=== PATIENT | female | born 1985 | race Caucasian/White ===

== ENCOUNTER → 2018-07-25 07:01 | Outpatient (CLI) | payer BC, SELFPAY | PROVIDERS: PCP Family Medicine; Visit Provider Obstetrics & Gynecology Reproductive Endocrinology | DX: Z32.00 Encounter for pregnancy test, result unknown (principal) | CPT/HCPCS: 36415; 84702 ==

== ENCOUNTER → 2018-07-27 07:05 | Outpatient (CLI) | payer BC, SELFPAY ==
[2018-07-27 07:49] LABS: HCG Quantitative /Beta subunit 581.55 mIU/mL
== END ==
PROVIDERS: PCP Family Medicine; Visit Provider Obstetrics & Gynecology Reproductive Endocrinology
DX: Z32.01 Encounter for pregnancy test, result positive (principal)
CPT/HCPCS: 36415; 84702

== ENCOUNTER → 2018-08-09 09:52 | Outpatient (CLI) | payer BC, SELFPAY ==
[2018-08-09 12:29] LABS: Appearance Urine UA CLEAR; Bilirubin Urine UA NEGATIVE (NEGATIVE); Color Urine UA YELLOW; Glucose Urine UA NEGATIVE (Negative); Ketones Urine UA NEGATIVE (NEGATIVE); Leukocyte Esterase Urine UA NEGATIVE (NEGATIVE); Nitrite Urine UA NEGATIVE (Negative); Occult Blood Urine UA NEGATIVE (Negative); Protein Urine UA NEGATIVE (Negative); Urobilinogen Urine UA 0.2 E.U./dL (0.2); pH Urine UA 6.5 (4.5-8.0)
[2018-08-09 12:37] LABS: Add Manual Diff / Slide Review NO; Basophils Absolute Auto 0 /uL (0-100); Basophils Percent Auto 0.4 % (0-2); Eosinophils Absolute Auto 100 /uL (0-450); Eosinophils Percent Auto 1.4 % (2-4); Hematocrit 45.2 % (36-46); Hemoglobin 15.2 g/dL (12.0-16.0); Lymphocytes Absolute Auto 1000 /uL (1100-4500); Lymphocytes Percent Auto 12.8 % (25-40); Mean Corpuscular HGB Conc 33.5 % (30-36); Mean Corpuscular Volume 95.5 fL (80-100); Monocytes Absolute Auto 800 /uL (0-900); Monocytes Percent Auto 10.3 % (3-14); Neutrophils Absolute Auto 5800 /uL (1500-7000); Neutrophils Percent Auto 75.1 % (50-75); Platelet Count 295 X10^3/uL (150-400); Red Blood Cell Count 4.74 X10^6/uL (4.0-5.2); Red Cell Distribution Width 12.4 % (11.6-14.8); White Blood Cell Count 7.7 X10^3/uL (4.5-11.0)
[2018-08-09 13:43] LABS: Thyroid Stimulating Hormone 1.06 uIU/mL (0.47-4.68)
[2018-08-09 13:45] LABS: Hepatitis B Surface Antigen NEGATIVE s/c (NEGATIVE); Rubella Antibody IgG 34.2 IU/mL (>15)
[2018-08-09 14:02] LABS: HIV 1 and 2 Antibody NEGATIVE (NEGATIVE); Hep C Virus Ab w/Reflex Quant NEGATIVE s/c (NEGATIVE)
[2018-08-10 19:14] LABS: RPR Screen Nonreactive (Nonreactive)
== END ==
PROVIDERS: Specialist; PCP Family Medicine; Visit Provider Family Medicine
DX: Z34.91 Encounter for supervision of normal pregnancy, unspecified, first trimester (principal)
CPT/HCPCS: 36415; 80055; 81003; 84443; 86631; 86632; 86695; 86696; 86703; 86787; 86803; 86850; 86900; 86901; 87077; 87086

== ENCOUNTER → 2018-08-24 16:46 | Outpatient (CLI) | payer BC, SELFPAY ==
[2018-08-24 21:06] LABS: Urine N gonorrhoeae NOT DETECTED
[2018-08-24 21:22] LABS: Urine Chlamydia NOT DETECTED
== END ==
PROVIDERS: PCP Family Medicine; Visit Provider Specialist
DX: Z11.3 Encounter for screening for infections with a predominantly sexual mode of transmission (principal); Z11.8 Encounter for screening for other infectious and parasitic diseases; Z34.81 Encounter for supervision of other normal pregnancy, first trimester; Z3A.08 8 weeks gestation of pregnancy
CPT/HCPCS: 87491; 87591

== ENCOUNTER → 2018-12-21 09:39 | Outpatient (CLI) | payer BC, SELFPAY ==
[2018-12-21 12:12] LABS: Hematocrit 37.8 % (36-46)
[2018-12-21 12:18] LABS: GTT (PREG) 1 Hour PP 50gm Dose 111 mg/dL (76-139)
== END ==
PROVIDERS: PCP Family Medicine; Visit Provider Specialist
DX: Z34.82 Encounter for supervision of other normal pregnancy, second trimester (principal); Z3A.26 26 weeks gestation of pregnancy
CPT/HCPCS: 36415; 82950; 85014; 85018

== ENCOUNTER 2019-02-20 07:30 | Outpatient (RCR) | payer BC, SELFPAY ==
--- NOTE | 2019-01-02 16:46 | PT.OIE ---
Current Diagnoses Sciatica, left side (01/02/19) Dorsalgia, unspecified (01/02/19) Other specified diseases and conditions complicating , childbirth and the puerperium (01/02/19) 24 weeks gestation of (01/02/19) Past Medical History (Last Reviewed 08/09/18 @ 13:16 by Catalina Toscano DO) Abnormal Pap smear of cervix (Chronic ~2003) Acne (Chronic ~1999) Plantar warts (Chronic ~1999) Seasonal allergies (Chronic ~1994) Chicken pox (Resolved ~1986) Fractures (Resolved ~2002) Past Surgical History (Last Reviewed 08/09/18 @ 13:16 by Catalina Toscano DO) Anesthesia (Resolved) H/O LEEP (Resolved) History of photorefractive keratectomy (PRK) (Resolved ~2014) History of tonsillectomy (~2008) Status post delivery (04/30/17) Status post dilation and curettage (05/05/17) Provider Visit Care Team Role Provider Type Catalina Toscano DO Primary Care Provider Physician Specialty: Family Practice Address: [address] [place] [address] Email: [email or web address] Lynne Chacon MD Attending Provider Physician Specialty: MEDICAL LAB DIRECTOR Address: [address] [place] [address] Email: [email or web address] Physical Therapy Initial Evaluation PT-OP-A Visit Information Start: 01/02/19 15:05 Freq: Status: Active Protocol: Document 01/02/19 15:07 AW (Rec: 01/02/19 16:46 AW [email or web address]) Out-Patient Physical Therapy Visit Information Visit Information Visit Type Initial Evaluation Visit Start Time 13:45 Visit Stop Time 14:29 Total Visit Minutes 44 Visit Number 1 Number of PROGRAMS DIRECTOR Visits 0 Evaluation Information Evaluation Date 01/02/19 PT-OP-B Current Condition Start: 01/02/19 15:05 Freq: Status: Active Protocol: Document 01/02/19 15:07 AW (Rec: 01/02/19 16:46 AW [email or web address]) Current Condition History of Current Condition Onset Date 10/08/2018 Current Complaints right-sided low back pain, left hip pain with radiation History of Current Condition Pt presents to physical therapy with complaints of right-sided low back pain and left hip pain which occasionally radiates down her lateral thigh and leg with numbness in the lateral border of her left foot. She is 27 weeks with her second child. She experienced hip pain with her first , but the low back pain is new and the current hip pain is more intense than before. She rates her low back pain as 6/ 10 and describes it as sharp, shooting. It grows more intense throughout the day and is worst at night when she attempts to get out of bed. She rates her hip pain as 4/10 at worst and describes it as achy. She notes that she typically carries her son on her left hip. Prior Treatments and Tests Pt has not has PT for back or hip pain before. Treatment Goals Patient/Caregiver Goals 1. To have less pain, especially at night 2. To be able to bathe her son in kneeling position with less pain. 3. To be able to rise from chair or from the floor with decreased pain. Prior Functional Status Baseline Function- ADL's Independent Baseline Function- Mobility Independent Baseline Function- Gait No deviations observed. 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 Current Functional Impairments (Reported) Functional Limitations- Mobility/Gait Increased pain bending over to pick objects or her child from the floor. Increased pain with rising from a chair or bed. Personal Factors Other Personal Factors That May Effect Pt's works for the [employer] and can be gone for long periods, leaving her to care for their child on her own. PT-OP-C Subjective Start: 01/02/19 15:05 Freq: Status: Active Protocol: Document 01/02/19 15:07 AW (Rec: 01/02/19 16:46 AW [email or web address]) OP-PT Subjective Patient Comments Patient Comments I'm an active person, former college soccer athlete. I can handle pain, but it's become too intense lately. Patient Questionnaires Oswestry Low Back Index Oswestry Score 12/50 Oswestry Impairment 20 to 39% Impaired (Score 20- 39) OP-PT Pain Assessment Pain Assessment Grid Paper Pain Assessment Grid Completed Yes Location left hip Pain Location Details pt points to left greater trochanter Intensity 4 Scale Used Numeric (1 - 10) Description Aching Frequency Intermittent Radiating Location lateral thigh, leg, and foot with numbness in lateral foot Pain Aggravating Factors Bending Lifting Pain Alleviating Factors Position Right low back Pain Location Details Pt points to a spot just medial to R PSIS. Intensity 6 Scale Used Numeric (1 - 10) Description Sharp Shooting Frequency Intermittent Pain Duration sudden, becomes less intense with change in position Pain Aggravating Factors Changing Position Bending Lifting Pain Alleviating Factors Position Home Pain Medication Use Pain Medications Used pt reports no pain medication Pain Behaviors Pain Behaviors Guarding PT-OP-F Manual Assessment Start: 01/02/19 15:05 Freq: Status: Active Protocol: Document 01/02/19 15:07 AW (Rec: 01/02/19 16:46 AW [email or web address]) Manual Assessments Soft Tissue Assessment Soft Tissue Mobility Assessment Pt tender to palpation over left greater trochanter and along iliotibial band. Unable to provoke radiating symptoms with palpation. Pt is point- tender just medial to R PSIS. Joint Mobility Assessment Joint Mobility Assessment SI joint tested with Laslett cluster. Distraction (-) Compression (+R, -L) Thigh thrust (- bilaterally) Gaenslen (- bilaterally) Sacral thrust (+) PT-OP-G Mobility & Gait Start: 01/02/19 15:05 Freq: Status: Active Protocol: Document 01/02/19 15:07 AW (Rec: 01/02/19 16:46 AW [email or web address]) OP Mobility Evaluation Functional Movements Squats Pt able to achieve full squat with no increase in pain, but is unable to keep heels down. OP Gait Assessment Gait Gait Assistance Required: Independent Assistive Devices Assistive Device None Gait Deviations General Gait Pattern Within Normal Limits Comments Gait Comments Pt notes increase in pain with longer distances. Not observed. PT-OP-H Neuro Start: 01/02/19 15:05 Freq: Status: Active Protocol: Document 01/02/19 15:07 AW (Rec: 01/02/19 16:46 AW [email or web address]) Sensation Evaluation Gross Sensation Gross Sensation Left LE Impaired Sensation Description Numbness Location Details Left Lateral Foot Light Touch Intact/Normal Sharp/Dull Intact/Normal Comments Summary Comments Pt experiences numbness of left lateral foot with increased left hip pain. Deep Tendon Reflex & Clonus Assessment Deep Tendon Reflex Bilateral Achilles Deep Tendon Reflex 2+ Normal Bilateral Patellar Deep Tendon Reflex 2+ Normal PT-OP-J Posture/Palpation/Skin Start: 01/02/19 15:05 Freq: Status: Active Protocol: Document 01/02/19 15:07 AW (Rec: 01/02/19 16:46 AW [email or web address]) Posture Evaluation Comments Posture Comments Pt presents with increased lumbar lordosis in standing and in sitting. Also significant for upper thoracic hump which pt states is new . Palpation Assessment Location One Palpation Location lumbar spine Palpation Details PA's with hypomobility noted at lower levels. Performed with pt in prone using maternity prone pillow. PT-OP-K Range of Motion Start: 01/02/19 15:05 Freq: Status: Active Protocol: Document 01/02/19 15:07 AW (Rec: 01/02/19 16:46 AW [email or web address]) Lumbar Spine Range of Motion Lumbar Spine Active Percentage Testing Position Standing Flexion 75 Extension 75 Rotation Left 100 Rotation Right 100 Lateral Flexion Left 90 Lateral Flexion Right 90 Comments Pt reported no pain in any tested plane PT-OP-L Special Tests Start: 01/02/19 15:05 Freq: Status: Active Protocol: Document 01/02/19 15:07 AW (Rec: 01/02/19 16:46 AW [email or web address]) Special Tests Lumbar Spine Special Tests Compression Test Results (-) Francisco Test Results R (+), L (-) Comments R thigh ~2 from mat in test position Hip Special Tests Nay's Test Results (-) bilaterally Comments Both legs drop >horizontal to floor Neural Special Tests- Lower Body Sciatic Nerve Tension Test Results (-) bilaterally Comments No increase in pain or radiating symptoms in full test position with ankle DF and chin tuck. PT-OP-M Strength Start: 01/02/19 15:05 Freq: Status: Active Protocol: Document 01/02/19 15:07 AW (Rec: 01/02/19 16:46 AW [email or web address]) Hip Strength Hip Manual Muscle Testing Right Flexion (L2) 4+ Good+ Extension (S1) 4- Good- Abduction 4- Good- Comments Plan to test hip rotation and adduction strength at next visit. Left Flexion (L2) 4+ Good+ Extension (S1) 4- Good- Abduction 4- Good- Comments Plan to test hip rotation and adduction strength at next visit. Ankle/Foot Strength Ankle and Foot Manual Muscle Testing Right Plantarflexion (S1) 4+ Good+ Comments Pt able to complete 15 heel raises in single-leg stance Left Plantarflexion (S1) 4+ Good+ Comments Pt able to complete 15 heel raises in single-leg stance PT-OP-T Assessment and Plan Start: 01/02/19 15:05 Freq: Status: Active Protocol: Document 01/02/19 15:07 AW (Rec: 01/02/19 16:46 AW [email or web address]) Physical Therapy Assessment Rehab Potential Rehabilitation Potential Excellent Evaluation Complexity Number of Personal Factors/Comorbidities 1-2 Number of Body Systems Impaired 1-2 Clinical Presentation at Evaluation Stable Impairments Impairments Functional Activities Pain Posture Strength Transfers Other Concerns Barriers to Rehabilitation 27th week of with a 20 month old child at home for whom pt provides near- constant care. Goals 3 Impairment functional activities Short Term Goal (STG) Pt will improve score on modified Oswestry from initial 24% to <18% for improved performance in functional activities STG Duration 01/23/19 Floor Attendant Goal (LTG) Pt will improve score on modified Oswestry from initial 24% to 14% or lower LTG Duration 02/27/19 2 Impairment bilateral hip strength Short Term Goal (STG) Pt will increase hip strength in all planes to 4/5 or greater STG Duration 01/23/19 Correction Goal (LTG) Pt will increase hip strength in all planes to 4+/5 or greater LTG Duration 02/27/19 1 Impairment pt unable to lift from floor without pain Short Term Goal (STG) Pt will transfer from half- kneeling to standing with 4/10 pain or less STG Duration 01/23/19 Correction Goal (LTG) Pt will transfer from half- kneeling to standing with 2/10 pain or less for improved ability to get up from the floor. LTG Duration 02/27/19 Assessment Summary Assessment Pt is a 33 yo woman with her second child. At 27 weeks' gestation, pt is experiencing right-sided low back pain and left hip pain with radiation to lateral left foot. No identifiable myotomal or dermatomal pattern identified. Laslett cluster for SI pathology inconclusive, but patient does report relief with use of SI belt, noting improved ability to stand up from half-kneeling with significantly less pain. Positive Francisco test on right side (no change with knee flexion) combined with excessive lumbar lordosis associated with indicate inadequate length of hip flexors. Pt will benefit from skilled physical therapy to address hip strengthening, overall hip mobility, and functional task training to decrease disability from back and hip pain. Physical Therapy Plan Frequency and Duration Frequency of Treatment 2x/Week Duration of Treatment 8 weeks Plan of Care Start Date 01/02/19 Plan of Care End Date 02/27/19 Therapeutic Interventions Therapeutic Interventions Home Exercise Program Joint Mobilizations Manual Therapy Neuromuscular Re-education Patient/Caregiver Education Self-Care/Home Management Soft Tissue Mobilization Taping Therapeutic Activities Therapeutic Exercises Modalities Cold Pack/Ice Massage Electric Stimulation Hot Packs Traction- Mechanical Next Visit Focus/Plan Next Note Type Treatment Note Next Visit Plan plan to assess hip rotation and adduction strength, begin hip strengthening, functional task training. SI belt prescription requested from Dr Dewey Chacon 01/02/19
--- NOTE | 2019-01-02 17:31 | PT.OPPOC ---
Current Diagnoses Sciatica, left side (01/02/19) Dorsalgia, unspecified (01/02/19) Other specified diseases and conditions complicating , childbirth and the puerperium (01/02/19) Abnormal posture (01/02/19) Weakness (01/02/19) 24 weeks gestation of (01/02/19) Provider Visit Care Team Role Provider Type Catalina Toscano DO Primary Care Provider Physician Specialty: [facility] Address: [address] [place] [address], [place], [address] Email: [email or web address] Lynne Chacon MD Attending Provider Physician Specialty: RESEARCH CHEF Address: [address] [place] [address], [address] Email: [email or web address] Plan Of Care PT-OP-T Assessment and Plan Start: 01/02/19 15:05 Freq: Status: Active Protocol: Document 01/02/19 15:07 AW (Rec: 01/02/19 16:46 AW [email or web address]) Physical Therapy Assessment Rehab Potential Rehabilitation Potential Excellent Evaluation Complexity Number of Personal Factors/Comorbidities 1-2 Number of Body Systems Impaired 1-2 Clinical Presentation at Evaluation Stable Impairments Impairments Functional Activities Pain Posture Strength Transfers Other Concerns Barriers to Rehabilitation 27th week of with a 20 month old child at home for whom pt provides near- constant care. Goals 3 Impairment functional activities Short Term Goal (STG) Pt will improve score on modified Oswestry from initial 24% to <18% for improved performance in functional activities STG Duration 01/23/19 Longterm Goal (LTG) Pt will improve score on modified Oswestry from initial 24% to 14% or lower LTG Duration 02/27/19 2 Impairment bilateral hip strength Short Term Goal (STG) Pt will increase hip strength in all planes to 4/5 or greater STG Duration 01/23/19 Senior Environmental Engineer Goal (LTG) Pt will increase hip strength in all planes to 4+/5 or greater LTG Duration 02/27/19 1 Impairment pt unable to lift from floor without pain Short Term Goal (STG) Pt will transfer from half- kneeling to standing with 4/10 pain or less STG Duration 01/23/19 Longterm Goal (LTG) Pt will transfer from half- kneeling to standing with 2/10 pain or less for improved ability to get up from the floor. LTG Duration 02/27/19 Assessment Summary Assessment Pt is a 33 yo woman with her second child. At 27 weeks' gestation, pt is experiencing right-sided low back pain and left hip pain with radiation to lateral left foot. No identifiable myotomal or dermatomal pattern identified. Laslett cluster for SI pathology inconclusive, but patient does report relief with use of SI belt, noting improved ability to stand up from half-kneeling with significantly less pain. Positive Francisco test on right side (no change with knee flexion) combined with excessive lumbar lordosis associated with indicate inadequate length of hip flexors. Pt will benefit from skilled physical therapy to address hip strengthening, overall hip mobility, and functional task training to decrease disability from back and hip pain. Physical Therapy Plan Frequency and Duration Frequency of Treatment 2x/Week Duration of Treatment 8 weeks Plan of Care Start Date 01/02/19 Plan of Care End Date 02/27/19 Therapeutic Interventions Therapeutic Interventions Home Exercise Program Joint Mobilizations Manual Therapy Neuromuscular Re-education Patient/Caregiver Education Self-Care/Home Management Soft Tissue Mobilization Taping Therapeutic Activities Therapeutic Exercises Modalities Cold Pack/Ice Massage Electric Stimulation Hot Packs Traction- Mechanical Next Visit Focus/Plan Next Note Type Treatment Note Next Visit Plan plan to assess hip rotation and adduction strength, begin hip strengthening, functional task training. SI belt prescription requested from Dr Dewey Chacon 01/02/19 Plan of Care Dates Plan of Care Start Date 01/02/19 Plan of Care End Date 02/27/19 Please Sign and Return: I have reviewed this Plan of Care and certify that the skilled therapy services above are required to meet the patient?s needs. Physician Signature Date Printed Name and Credentials Clinical Instructor Signature Printed Name and Credentials
--- NOTE | 2019-01-19 07:35 | PT.OTN ---
Current Diagnoses Sciatica, left side (01/19/19) Dorsalgia, unspecified (01/19/19) Other specified diseases and conditions complicating , childbirth and the puerperium (01/19/19) Abnormal posture (01/19/19) Weakness (01/19/19) 24 weeks gestation of (01/19/19) Physical Therapy Treatment Note PT-OP-A Visit Information Start: 01/02/19 15:05 Freq: Status: Active Protocol: Document 01/19/19 07:35 DLM (Rec: 01/19/19 13:47 DLM [id number]) Out-Patient Physical Therapy Visit Information Visit Information Visit Type Treatment Note Visit Start Time 07:35 Visit Stop Time 08:20 Total Visit Minutes 45 Visit Number 2 Number of PUBLIC RELATIONS ACCOUNT EXECUTIVE Visits 0 Evaluation Information Evaluation Date 01/02/19 Precautions Precautions PT-OP-B Current Condition Start: 01/02/19 15:05 Freq: Status: Active Protocol: Document 01/02/19 15:07 AW (Rec: 01/02/19 16:46 AW [email or web address]) Current Condition History of Current Condition Onset Date 10/08/2018 Current Complaints right-sided low back pain, left hip pain with radiation History of Current Condition Pt presents to physical therapy with complaints of right-sided low back pain and left hip pain which occasionally radiates down her lateral thigh and leg with numbness in the lateral border of her left foot. She is 27 weeks with her second child. She experienced hip pain with her first , but the low back pain is new and the current hip pain is more intense than before. She rates her low back pain as 6/ 10 and describes it as sharp, shooting. It grows more intense throughout the day and is worst at night when she attempts to get out of bed. She rates her hip pain as 4/10 at worst and describes it as achy. She notes that she typically carries her son on her left hip. Prior Treatments and Tests Pt has not has PT for back or hip pain before. Treatment Goals Patient/Caregiver Goals 1. To have less pain, especially at night 2. To be able to bathe her son in kneeling position with less pain. 3. To be able to rise from chair or from the floor with decreased pain. Prior Functional Status Baseline Function- ADL's Independent Baseline Function- Mobility Independent Baseline Function- Gait No deviations observed. 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 Current Functional Impairments (Reported) Functional Limitations- Mobility/Gait Increased pain bending over to pick objects or her child from the floor. Increased pain with rising from a chair or bed. Personal Factors Other Personal Factors That May Effect Pt's works for the [employer] and can be gone for long periods, leaving her to care for their child on her own. PT-OP-C Subjective Start: 01/02/19 15:05 Freq: Status: Active Protocol: Document 01/19/19 07:35 DLM (Rec: 01/19/19 13:47 DLM [id number]) OP-PT Subjective Patient Comments Patient Comments She reports she has been doing better. She would like some exercises she can work on at home. She notices increased pain at the end of the day but by then her is home and can take care of her Son. She has no LE symptoms today. PT-OP-F Manual Assessment Start: 01/02/19 15:05 Freq: Status: Active Protocol: Document 01/02/19 15:07 AW (Rec: 01/02/19 16:46 AW [email or web address]) Manual Assessments Soft Tissue Assessment Soft Tissue Mobility Assessment Pt tender to palpation over left greater trochanter and along iliotibial band. Unable to provoke radiating symptoms with palpation. Pt is point- tender just medial to R PSIS. Joint Mobility Assessment Joint Mobility Assessment SI joint tested with Laslett cluster. Distraction (-) Compression (+R, -L) Thigh thrust (- bilaterally) Gaenslen (- bilaterally) Sacral thrust (+) PT-OP-G Mobility & Gait Start: 01/02/19 15:05 Freq: Status: Active Protocol: Document 01/02/19 15:07 AW (Rec: 01/02/19 16:46 AW [email or web address]) OP Mobility Evaluation Functional Movements Squats Pt able to achieve full squat with no increase in pain, but is unable to keep heels down. OP Gait Assessment Gait Gait Assistance Required: Independent Assistive Devices Assistive Device None Gait Deviations General Gait Pattern Within Normal Limits Comments Gait Comments Pt notes increase in pain with longer distances. Not observed. PT-OP-H Neuro Start: 01/02/19 15:05 Freq: Status: Active Protocol: Document 01/02/19 15:07 AW (Rec: 01/02/19 16:46 AW [email or web address]) Sensation Evaluation Gross Sensation Gross Sensation Left LE Impaired Sensation Description Numbness Location Details Left Lateral Foot Light Touch Intact/Normal Sharp/Dull Intact/Normal Comments Summary Comments Pt experiences numbness of left lateral foot with increased left hip pain. Deep Tendon Reflex & Clonus Assessment Deep Tendon Reflex Bilateral Achilles Deep Tendon Reflex 2+ Normal Bilateral Patellar Deep Tendon Reflex 2+ Normal PT-OP-J Posture/Palpation/Skin Start: 01/02/19 15:05 Freq: Status: Active Protocol: Document 01/02/19 15:07 AW (Rec: 01/02/19 16:46 AW [email or web address]) Posture Evaluation Comments Posture Comments Pt presents with increased lumbar lordosis in standing and in sitting. Also significant for upper thoracic hump which pt states is new . Palpation Assessment Location One Palpation Location lumbar spine Palpation Details PA's with hypomobility noted at lower levels. Performed with pt in prone using maternity prone pillow. PT-OP-K Range of Motion Start: 01/02/19 15:05 Freq: Status: Active Protocol: Document 01/02/19 15:07 AW (Rec: 01/02/19 16:46 AW [email or web address]) Lumbar Spine Range of Motion Lumbar Spine Active Percentage Testing Position Standing Flexion 75 Extension 75 Rotation Left 100 Rotation Right 100 Lateral Flexion Left 90 Lateral Flexion Right 90 Comments Pt reported no pain in any tested plane PT-OP-L Special Tests Start: 01/02/19 15:05 Freq: Status: Active Protocol: Document 01/02/19 15:07 AW (Rec: 01/02/19 16:46 AW [email or web address]) Special Tests Lumbar Spine Special Tests Compression Test Results (-) Francisco Test Results R (+), L (-) Comments R thigh ~2 from mat in test position Hip Special Tests Nay's Test Results (-) bilaterally Comments Both legs drop >horizontal to floor Neural Special Tests- Lower Body Sciatic Nerve Tension Test Results (-) bilaterally Comments No increase in pain or radiating symptoms in full test position with ankle DF and chin tuck. PT-OP-M Strength Start: 01/02/19 15:05 Freq: Status: Active Protocol: Document 01/19/19 07:35 DLM (Rec: 01/19/19 13:47 DLM [id number]) Hip Strength Hip Manual Muscle Testing Right Flexion (L2) 4+ Good+ Extension (S1) 4- Good- Abduction 4- Good- Adduction 5 Normal External Rotation 5 Normal Internal Rotation 5 Normal Comments hip/pelvic instability in single limb stance with trunk rotation to right Left Flexion (L2) 4+ Good+ Extension (S1) 4- Good- Abduction 4- Good- Adduction 5 Normal External Rotation 5 Normal Internal Rotation 5 Normal Comments hip/pelvic instability in single limb stance with drop of pelvis PT-OP-Q Treatments Start: 01/02/19 15:05 Freq: Status: Active Protocol: Document 01/19/19 07:35 DL (Rec: 01/19/19 13:47 DL [id number]) Therapeutic Exercises Supine Exercises 5 Supine Exercise Name Hip Abduction Side bilateral Resistance Level 1 exercise band Reps/Minutes 10 reps 4 Supine Exercise Name Hip Adduction Side bilateral Resistance isometric with pillow between knees Equipment Used Hooklying Reps/Minutes 10 reps, 5 sec holds 3 Supine Exercise Name Hamstring stretch Resistance passive Equipment Used long sitting with one LE on edge of bed Reps/Minutes 3 reps each side, 20 sec hold Comments left tighter than right 2 Supine Exercise Name Single knee to chest stretch Side bilateral Reps/Minutes 3 reps each, 20-30 sec hold 1 Supine Exercise Name hip flexor stretch off edge of table Side bilateral Resistance passive Reps/Minutes 3 reps each side, 20 sec hold each Comments right tighter than left Sidelying Exercises 1 Sidelying Exercise Name Clamshells Side bilateral Resistance active Reps/Minutes 10 reps each side Self-Care/Home Management Treatment Education Patient Education Home Exercise Program,Pain Management Other Education Provided Level one exercise band for home use with written HEP. PT-OP-T Assessment and Plan Start: 01/02/19 15:05 Freq: Status: Active Protocol: Document 01/19/19 07:35 DLM (Rec: 01/19/19 13:47 DL [id number]) Physical Therapy Assessment Goals 3 Impairment functional activities Short Term Goal (STG) Pt will improve score on modified Oswestry from initial 24% to <18% for improved performance in functional activities STG Duration 01/23/19 Alf Goal (LTG) Pt will improve score on modified Oswestry from initial 24% to 14% or lower LTG Duration 02/27/19 2 Impairment bilateral hip strength Short Term Goal (STG) Pt will increase hip strength in all planes to 4/5 or greater STG Duration 01/23/19 University Tutor Goal (LTG) Pt will increase hip strength in all planes to 4+/5 or greater LTG Duration 02/27/19 1 Impairment pt unable to lift from floor without pain Short Term Goal (STG) Pt will transfer from half- kneeling to standing with 4/10 pain or less STG Duration 01/23/19 Alf Goal (LTG) Pt will transfer from half- kneeling to standing with 2/10 pain or less for improved ability to get up from the floor. LTG Duration 02/27/19 Progress Towards Goals Progress Towards Goals Progressing Toward Goals Assessment Summary Assessment She reports improving symptoms today. She tolerated exercises well with mild soreness right SI area. Clinical indications of right SI instability today. Pt is motivated to do HEP until her next scheduled visit. No LE radicular symptoms today. Physical Therapy Plan Frequency and Duration Frequency of Treatment 2x/Week Duration of Treatment 8 weeks Plan of Care Start Date 01/02/19 Plan of Care End Date 02/27/19 Therapeutic Interventions Therapeutic Interventions Home Exercise Program,Joint Mobilizations,Manual Therapy, Neuromuscular Re-education, Patient/Caregiver Education, Self-Care/Home Management,Soft Tissue Mobilization,Taping, Therapeutic Activities, Therapeutic Exercises Modalities Cold Pack/Ice Massage,Electric Stimulation,Hot Packs, Traction- Mechanical Next Visit Focus/Plan Next Note Type Treatment Note Next Visit Plan provide pt with SI belt ( script received), pt not back until 02/01 due to schedule conflicts
--- NOTE | 2019-02-06 10:58 | PT.OTN ---
Current Diagnoses Sciatica, left side (02/06/19) Dorsalgia, unspecified (02/06/19) Other specified diseases and conditions complicating , childbirth and the puerperium (02/06/19) Abnormal posture (02/06/19) Weakness (02/06/19) 24 weeks gestation of (02/06/19) Physical Therapy Treatment Note PT-OP-A Visit Information Start: 01/02/19 15:05 Freq: Status: Active Protocol: Document 02/06/19 08:15 AMB (Rec: 02/06/19 08:36 AMB [id number]) Out-Patient Physical Therapy Visit Information Visit Information Visit Type Treatment Note Visit Start Time 07:30 Visit Stop Time 08:15 Total Visit Minutes 45 Visit Number 3 PT-OP-B Current Condition Start: 01/02/19 15:05 Freq: Status: Active Protocol: Document 01/02/19 15:07 AW (Rec: 01/02/19 16:46 AW [email or web address]) Current Condition History of Current Condition Onset Date 10/08/2018 Current Complaints right-sided low back pain, left hip pain with radiation History of Current Condition Pt presents to physical therapy with complaints of right-sided low back pain and left hip pain which occasionally radiates down her lateral thigh and leg with numbness in the lateral border of her left foot. She is 27 weeks with her second child. She experienced hip pain with her first , but the low back pain is new and the current hip pain is more intense than before. She rates her low back pain as 6/ 10 and describes it as sharp, shooting. It grows more intense throughout the day and is worst at night when she attempts to get out of bed. She rates her hip pain as 4/10 at worst and describes it as achy. She notes that she typically carries her son on her left hip. Prior Treatments and Tests Pt has not has PT for back or hip pain before. Treatment Goals Patient/Caregiver Goals 1. To have less pain, especially at night 2. To be able to bathe her son in kneeling position with less pain. 3. To be able to rise from chair or from the floor with decreased pain. Prior Functional Status Baseline Function- ADL's Independent Baseline Function- Mobility Independent Baseline Function- Gait No deviations observed. 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 Current Functional Impairments (Reported) Functional Limitations- Mobility/Gait Increased pain bending over to pick objects or her child from the floor. Increased pain with rising from a chair or bed. Personal Factors Other Personal Factors That May Effect Pt's works for the [employer] and can be gone for long periods, leaving her to care for their child on her own. PT-OP-C Subjective Start: 01/02/19 15:05 Freq: Status: Active Protocol: Document 02/06/19 08:15 AMB (Rec: 02/06/19 08:36 AMB [id number]) OP-PT Subjective Patient Comments Patient Comments Kenzie attends PT stating that her pain is better. She does still get it, especially when she has to take care of her son all day long, but it hasn' t been bad in about a week. She thinks at this point she doesn't need the SI belt. PT-OP-F Manual Assessment Start: 01/02/19 15:05 Freq: Status: Active Protocol: Document 01/02/19 15:07 AW (Rec: 01/02/19 16:46 AW [email or web address]) Manual Assessments Soft Tissue Assessment Soft Tissue Mobility Assessment Pt tender to palpation over left greater trochanter and along iliotibial band. Unable to provoke radiating symptoms with palpation. Pt is point- tender just medial to R PSIS. Joint Mobility Assessment Joint Mobility Assessment SI joint tested with Laslett cluster. Distraction (-) Compression (+R, -L) Thigh thrust (- bilaterally) Gaenslen (- bilaterally) Sacral thrust (+) PT-OP-G Mobility & Gait Start: 01/02/19 15:05 Freq: Status: Active Protocol: Document 01/02/19 15:07 AW (Rec: 01/02/19 16:46 AW [email or web address]) OP Mobility Evaluation Functional Movements Squats Pt able to achieve full squat with no increase in pain, but is unable to keep heels down. OP Gait Assessment Gait Gait Assistance Required: Independent Assistive Devices Assistive Device None Gait Deviations General Gait Pattern Within Normal Limits Comments Gait Comments Pt notes increase in pain with longer distances. Not observed. PT-OP-H Neuro Start: 01/02/19 15:05 Freq: Status: Active Protocol: Document 01/02/19 15:07 AW (Rec: 01/02/19 16:46 AW [email or web address]) Sensation Evaluation Gross Sensation Gross Sensation Left LE Impaired Sensation Description Numbness Location Details Left Lateral Foot Light Touch Intact/Normal Sharp/Dull Intact/Normal Comments Summary Comments Pt experiences numbness of left lateral foot with increased left hip pain. Deep Tendon Reflex & Clonus Assessment Deep Tendon Reflex Bilateral Achilles Deep Tendon Reflex 2+ Normal Bilateral Patellar Deep Tendon Reflex 2+ Normal PT-OP-J Posture/Palpation/Skin Start: 01/02/19 15:05 Freq: Status: Active Protocol: Document 01/02/19 15:07 AW (Rec: 01/02/19 16:46 AW [email or web address]) Posture Evaluation Comments Posture Comments Pt presents with increased lumbar lordosis in standing and in sitting. Also significant for upper thoracic hump which pt states is new . Palpation Assessment Location One Palpation Location lumbar spine Palpation Details PA's with hypomobility noted at lower levels. Performed with pt in prone using maternity prone pillow. PT-OP-K Range of Motion Start: 01/02/19 15:05 Freq: Status: Active Protocol: Document 01/02/19 15:07 AW (Rec: 01/02/19 16:46 AW [email or web address]) Lumbar Spine Range of Motion Lumbar Spine Active Percentage Testing Position Standing Flexion 75 Extension 75 Rotation Left 100 Rotation Right 100 Lateral Flexion Left 90 Lateral Flexion Right 90 Comments Pt reported no pain in any tested plane PT-OP-L Special Tests Start: 01/02/19 15:05 Freq: Status: Active Protocol: Document 01/02/19 15:07 AW (Rec: 01/02/19 16:46 AW [email or web address]) Special Tests Lumbar Spine Special Tests Compression Test Results (-) Francisco Test Results R (+), L (-) Comments R thigh ~2 from mat in test position Hip Special Tests Nay's Test Results (-) bilaterally Comments Both legs drop >horizontal to floor Neural Special Tests- Lower Body Sciatic Nerve Tension Test Results (-) bilaterally Comments No increase in pain or radiating symptoms in full test position with ankle DF and chin tuck. PT-OP-M Strength Start: 01/02/19 15:05 Freq: Status: Active Protocol: Document 01/19/19 07:35 DLM (Rec: 01/19/19 13:47 DLM [id number]) Hip Strength Hip Manual Muscle Testing Right Flexion (L2) 4+ Good+ Extension (S1) 4- Good- Abduction 4- Good- Adduction 5 Normal External Rotation 5 Normal Internal Rotation 5 Normal Comments hip/pelvic instability in single limb stance with trunk rotation to right Left Flexion (L2) 4+ Good+ Extension (S1) 4- Good- Abduction 4- Good- Adduction 5 Normal External Rotation 5 Normal Internal Rotation 5 Normal Comments hip/pelvic instability in single limb stance with drop of pelvis PT-OP-Q Treatments Start: 01/02/19 15:05 Freq: Status: Active Protocol: Document 02/06/19 07:30 AMB (Rec: 02/06/19 09:00 AMB [email or web address]) Therapeutic Exercises Supine Exercises 6 Supine Exercise Name bridge Reps/Minutes 2x10 3 Supine Exercise Name Hamstring stretch Resistance passive Equipment Used long sitting with one LE on edge of bed Reps/Minutes 3 reps each side, 20 sec hold Comments left tighter than right 1 Supine Exercise Name hip flexor stretch off edge of table Side bilateral Resistance passive Reps/Minutes 3 reps each side, 20 sec hold each Comments modified to standing so pt can do at home Sidelying Exercises 1 Sidelying Exercise Name Clamshells Side bilateral Resistance active Reps/Minutes 10 reps each side Comments #3 t band Sitting Exercises 4 Sitting Exercise Name standing posterior pelvic tilt Reps/Minutes 10 3 Sitting Exercise Name chin tuck Reps/Minutes 30x4 2 Sitting Exercise Name pec stretch Reps/Minutes 30x2 1 Sitting Exercise Name UT stretch Reps/Minutes 30x2 PT-OP-T Assessment and Plan Start: 01/02/19 15:05 Freq: Status: Active Protocol: Document 02/06/19 10:55 AMB (Rec: 02/06/19 10:58 AMB [email or web address]) Physical Therapy Assessment Assessment Summary Assessment Kenzie is doing well, fatigues quickly with exercises, and continues to have postural changes that make it easy for her to fall into pain patterns . Changing POC to everyother week due to patient doing well and difficulty finding sitters. Physical Therapy Plan Next Visit Focus/Plan Next Note Type Treatment Note Next Visit Plan Progress postural exercises
--- NOTE | 2019-02-20 09:22 | PT.OTN ---
Current Diagnoses Sciatica, left side (02/20/19) Dorsalgia, unspecified (02/20/19) Other specified diseases and conditions complicating , childbirth and the puerperium (02/20/19) Abnormal posture (02/20/19) Weakness (02/20/19) 24 weeks gestation of (02/20/19) Physical Therapy Treatment Note PT-OP-A Visit Information Start: 01/02/19 15:05 Freq: Status: Active Protocol: Document 02/20/19 07:30 AMB (Rec: 02/20/19 09:06 AMB [id number]) Out-Patient Physical Therapy Visit Information Visit Information Visit Type Treatment Note Visit Start Time 07:30 Visit Stop Time 08:15 Total Visit Minutes 45 Visit Number 4 PT-OP-B Current Condition Start: 01/02/19 15:05 Freq: Status: Active Protocol: Document 01/02/19 15:07 AW (Rec: 01/02/19 16:46 AW [email or web address]) Current Condition History of Current Condition Onset Date 10/08/2018 Current Complaints right-sided low back pain, left hip pain with radiation History of Current Condition Pt presents to physical therapy with complaints of right-sided low back pain and left hip pain which occasionally radiates down her lateral thigh and leg with numbness in the lateral border of her left foot. She is 27 weeks with her second child. She experienced hip pain with her first , but the low back pain is new and the current hip pain is more intense than before. She rates her low back pain as 6/ 10 and describes it as sharp, shooting. It grows more intense throughout the day and is worst at night when she attempts to get out of bed. She rates her hip pain as 4/10 at worst and describes it as achy. She notes that she typically carries her son on her left hip. Prior Treatments and Tests Pt has not has PT for back or hip pain before. Treatment Goals Patient/Caregiver Goals 1. To have less pain, especially at night 2. To be able to bathe her son in kneeling position with less pain. 3. To be able to rise from chair or from the floor with decreased pain. Prior Functional Status Baseline Function- ADL's Independent Baseline Function- Mobility Independent Baseline Function- Gait No deviations observed. 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 Current Functional Impairments (Reported) Functional Limitations- Mobility/Gait Increased pain bending over to pick objects or her child from the floor. Increased pain with rising from a chair or bed. Personal Factors Other Personal Factors That May Effect Pt's works for the [employer] and can be gone for long periods, leaving her to care for their child on her own. PT-OP-C Subjective Start: 01/02/19 15:05 Freq: Status: Active Protocol: Document 02/20/19 07:30 AMB (Rec: 02/20/19 09:06 AMB [id number]) OP-PT Subjective Patient Comments Patient Comments Kenzie attends PT stating that her back is feeling ok. Concerned about her neck still . Did sit weird yesterday and had right sided abdominal pain (round ligament?) but feeling fine now. PT-OP-F Manual Assessment Start: 01/02/19 15:05 Freq: Status: Active Protocol: Document 01/02/19 15:07 AW (Rec: 01/02/19 16:46 AW [email or web address]) Manual Assessments Soft Tissue Assessment Soft Tissue Mobility Assessment Pt tender to palpation over left greater trochanter and along iliotibial band. Unable to provoke radiating symptoms with palpation. Pt is point- tender just medial to R PSIS. Joint Mobility Assessment Joint Mobility Assessment SI joint tested with Laslett cluster. Distraction (-) Compression (+R, -L) Thigh thrust (- bilaterally) Gaenslen (- bilaterally) Sacral thrust (+) PT-OP-G Mobility & Gait Start: 01/02/19 15:05 Freq: Status: Active Protocol: Document 01/02/19 15:07 AW (Rec: 01/02/19 16:46 AW [email or web address]) OP Mobility Evaluation Functional Movements Squats Pt able to achieve full squat with no increase in pain, but is unable to keep heels down. OP Gait Assessment Gait Gait Assistance Required: Independent Assistive Devices Assistive Device None Gait Deviations General Gait Pattern Within Normal Limits Comments Gait Comments Pt notes increase in pain with longer distances. Not observed. PT-OP-H Neuro Start: 01/02/19 15:05 Freq: Status: Active Protocol: Document 01/02/19 15:07 AW (Rec: 01/02/19 16:46 AW [email or web address]) Sensation Evaluation Gross Sensation Gross Sensation Left LE Impaired Sensation Description Numbness Location Details Left Lateral Foot Light Touch Intact/Normal Sharp/Dull Intact/Normal Comments Summary Comments Pt experiences numbness of left lateral foot with increased left hip pain. Deep Tendon Reflex & Clonus Assessment Deep Tendon Reflex Bilateral Achilles Deep Tendon Reflex 2+ Normal Bilateral Patellar Deep Tendon Reflex 2+ Normal PT-OP-J Posture/Palpation/Skin Start: 01/02/19 15:05 Freq: Status: Active Protocol: Document 01/02/19 15:07 AW (Rec: 01/02/19 16:46 AW [email or web address]) Posture Evaluation Comments Posture Comments Pt presents with increased lumbar lordosis in standing and in sitting. Also significant for upper thoracic hump which pt states is new . Palpation Assessment Location One Palpation Location lumbar spine Palpation Details PA's with hypomobility noted at lower levels. Performed with pt in prone using maternity prone pillow. PT-OP-K Range of Motion Start: 01/02/19 15:05 Freq: Status: Active Protocol: Document 01/02/19 15:07 AW (Rec: 01/02/19 16:46 AW [email or web address]) Lumbar Spine Range of Motion Lumbar Spine Active Percentage Testing Position Standing Flexion 75 Extension 75 Rotation Left 100 Rotation Right 100 Lateral Flexion Left 90 Lateral Flexion Right 90 Comments Pt reported no pain in any tested plane PT-OP-L Special Tests Start: 01/02/19 15:05 Freq: Status: Active Protocol: Document 01/02/19 15:07 AW (Rec: 01/02/19 16:46 AW [email or web address]) Special Tests Lumbar Spine Special Tests Compression Test Results (-) Francisco Test Results R (+), L (-) Comments R thigh ~2 from mat in test position Hip Special Tests Nay's Test Results (-) bilaterally Comments Both legs drop >horizontal to floor Neural Special Tests- Lower Body Sciatic Nerve Tension Test Results (-) bilaterally Comments No increase in pain or radiating symptoms in full test position with ankle DF and chin tuck. PT-OP-M Strength Start: 01/02/19 15:05 Freq: Status: Active Protocol: Document 01/19/19 07:35 DLM (Rec: 01/19/19 13:47 DLM [id number]) Hip Strength Hip Manual Muscle Testing Right Flexion (L2) 4+ Good+ Extension (S1) 4- Good- Abduction 4- Good- Adduction 5 Normal External Rotation 5 Normal Internal Rotation 5 Normal Comments hip/pelvic instability in single limb stance with trunk rotation to right Left Flexion (L2) 4+ Good+ Extension (S1) 4- Good- Abduction 4- Good- Adduction 5 Normal External Rotation 5 Normal Internal Rotation 5 Normal Comments hip/pelvic instability in single limb stance with drop of pelvis PT-OP-Q Treatments Start: 01/02/19 15:05 Freq: Status: Active Protocol: Document 02/20/19 07:30 AMB (Rec: 02/20/19 09:21 AMB [id number]) Therapeutic Exercises Supine Exercises 7 Supine Exercise Name chin tuck Reps/Minutes 10, 5 sec hold Standing Exercises 2 Standing Exercise Name table plank Comments with TrA pelvic floor, vc neck posture 1 Standing Exercise Name t band row Reps/Minutes #3 2x10 Manual Therapy Treatment Soft Tissue Mobilization 1 Body Location UT stretch with sub occipital release Mobilization Type Myofascial Release,Sustained Pressure,Trigger Point Release PT-OP-T Assessment and Plan Start: 01/02/19 15:05 Freq: Status: Active Protocol: Document 02/20/19 07:30 AMB (Rec: 02/20/19 09:21 AMB [id number]) Physical Therapy Assessment Assessment Summary Assessment Kenzie did well with plank and rows today. Lordosis in lumbar spine difficult to manage which increases thoracic kyphosis and that leads to her cervical hyperlordosis. Physical Therapy Plan Next Visit Focus/Plan Next Note Type Treatment Note Next Visit Plan Progress postural exercises
== END 2019-02-21 12:55 ==
LOC: PHYS 07:30
PROVIDERS: PCP Family Medicine; Visit Provider Specialist
DX: O99.89 Other specified diseases and conditions complicating pregnancy, childbirth and the puerperium (principal); M54.9 Dorsalgia, unspecified; M54.32 Sciatica, left side; Z3A.24 24 weeks gestation of pregnancy; R53.1 Weakness; R29.3 Abnormal posture
CPT/HCPCS: 97110; 97140; 97161

== ENCOUNTER → 2019-03-08 08:36 | Outpatient (CLI) | payer BC, SELFPAY ==
[2019-03-09 09:14] LABS: Strep Grp B PCR NEG for Grp B Strep
== END ==
PROVIDERS: PCP Family Medicine; Visit Provider Specialist
DX: Z34.83 Encounter for supervision of other normal pregnancy, third trimester (principal)
CPT/HCPCS: 87653

== ENCOUNTER 2019-03-13 12:15 | Outpatient (CLI) | payer BC, SELFPAY ==
--- NOTE | 2019-03-13 13:05 | PM.OBTRLD ---
Visit Information Visit Information Date of evaluation: 03/13/19 Primary OB Provider: Lynne Chacon Reason for Evaluation: Yes rule out labor Vital Signs Vital Signs: Blood pressure 119/82, pulse 91, temperature 97.7? PFSH Social History Smoking Status: Never smoker Exam Narrative Exam Narrative: Abdomen is soft, nontender. Evaluation Evaluation Baseline heart rate: 145 Variability: Moderate (11-25) monitor accelerations: Present monitor decelerations: Absent Contraction Frequency (minutes): 10 Uterine Contraction Intensity: Mild Category of Tracing: I Diagnosis, Plan/Disposition Final Diagnosis (1) Abdominal pain during in third trimester: Current Visit: Yes Status: Acute Plan/Disposition Plan: Patient with decreasing abdominal pain that started very sharp and short this morning. She is having some tightening which corresponds to contractions on the monitor but appear not to be labor. Patient does not have any vaginal bleeding or leakage of fluid. Unclear etiology of abdominal pain but no evidence of abruption or labor. Patient was discharged home with precautions reviewed. OB Disposition: home
== END 2019-03-13 13:28 | disposition home or self-care (01) ==
LOC: LABOR 13:18 → OB 03-15 10:46
PROVIDERS: PCP Family Medicine; Visit Provider Specialist
DX: O26.893 Other specified pregnancy related conditions, third trimester (principal); Z3A.37 37 weeks gestation of pregnancy; R10.9 Unspecified abdominal pain
CPT/HCPCS: 59025; G0378; G0379

== ENCOUNTER 2019-03-27 11:22 | Inpatient (IN) | payer BC, SELFPAY ==
[2019-03-27] VITALS (12 sets, daily range): BP systolic 109–134; BP diastolic 73–92; PULSE 66–81; RESP 10–18; TEMP 36–36.6; O2SAT 96–98
--- NOTE | 2019-03-27 | PATH_ITS ---
[facility] Accession Number: [id number] . 01 Material submitted: . PART A: fallopian tube - SEGMENT OF LEFT FALLOPIAN TUBE PART B: fallopian tube - SEGMENT OF RIGHT FALLOPIAN TUBE . 01 Clinical history: . REPEAT W/CARMEN TUBAL LIGATION . 02 Diagnosis: A. Segment of Left Fallopian Tube, Tubal Ligation: Complete cross-section of fallopian tube. No evidence of neoplasm. . B. Segment of Right Fallopian Tube, Tubal Ligation: Complete cross-section of fallopian tube. No evidence of neoplasm. MRV 03/29/2019 1254 Local . 02 Electronically signed: . Brant Best MD, PhD, Pathologist NPI- [id number] . 01 Gross description: . (A) Received in formalin, labeled segment of L fallopian tube, is a nonfimbriated fallopian tube segment (length-0.9 cm, diameter-0.3 cm) with edwards-pink smooth shiny serosa and a edwards unremarkable lumen. Trisected and entirely submitted in cassette A1. (B) Received in formalin, labeled segment of R fallopian tube, is a nonfimbriated fallopian tube segment (length-1.3 cm, diameter-0.5 cm) with edwards-pink, smooth shiny serosa and a edwards unremarkable lumen. Trisected and entirely submitted in cassette B1. ([id number]) /MRV 03/28/2019 1537 Local . 02 Pathologist provided ICD-10: Z30.2 . 02 CPT . 509878, 322884 Performed at: [address], [place], [place] [id number] MD Edson Pena MD Phone: [phone] Performed at: 02 [facility] [address] [place] [id number] MD Courtney Can MD Phone: [phone]
--- NOTE | 2019-03-27 11:47 | P.HPOB_ITS ---
OB HPI History of Present Condition Chief complaint: [id number] REPEAT W/CARMEN TUBAL LIGATION : 2 Para: 1 Estimated Date of Delivery: 04/02/19 Estimated Gestational Age (weeks): 39 Narrative: Kenzie Saldaña is a 33 year old 001 at 39+ 1 with an IVF presenting for scheduled repeat Caesarean section and bilateral tubal ligation. The patient reports feeling well today, good movement, no vaginal bleeding, no loss of fluid, no contractions, no headaches, no visual changes, no other complaints obstetrical or otherwise. The patient reports that this has been uncomplicated, and that her 1st was uncomplicated, though she had a section for breech presentation after failed version. The patient and her report that her 1st delivery was complicated by delayed hemorrhage, 5 days after delivery and thought to be likely uterine atony. The patient reported that she needed a D and C, status significant amount of uterine clot removed, and required transfusion of 2 units of packed red blood cells. The patient denies any other history significant for coagulopathy, or any other medical history whatsoever. The patient and her vocalized understanding that the tubal ligation is permanent sterilization, and desired to proceed. They report that both pregnancies have been IVF, and that they want to avoid any ?surprises.? Evaluation Evaluation Baseline heart rate: 140 Variability: Average (6-10) monitor accelerations: Present monitor decelerations: Absent Category of Tracing: I Laboratory results: Labs pending [facility] Medical History Abnormal Pap smear of cervix (Chronic ~2003) Acne (Chronic ~1999) Chicken pox (Resolved ~1986) Fractures (Resolved ~2002) Plantar warts (Chronic ~1999) Seasonal allergies (Chronic ~1994) Surgical History Anesthesia (Resolved) H/O LEEP (Resolved) History of photorefractive keratectomy (PRK) (Resolved ~2014) History of tonsillectomy (~2008) Status post delivery (04/30/17) Status post dilation and curettage (05/05/17) Family History Father Age: 64 Alcoholic Smoker Hypertension Grandfather Skin cancer Hypertension High cholesterol Stroke Grandmother Hypertension Grandmother Lobular and ductal carcinoma Breast cancer Grandfather No problems noted. Social History Smoking Status: Never smoker Meds Home Medications and Allergies Home Medications Medication Instructions Recorded Confirmed Type ibuprofen 600 mg PO Q6HP PRN #30 tab 05/01/17 02/02/18 Rx [PROBIOTICS] #0 05/19/17 02/02/18 History amoxicillin 875 mg-potassium 1 tab PO BID #14 tab 08/09/18 Rx clavulanate 125 mg tablet Allergies Allergy/AdvReac Type Severity Reaction Status Date / Time hydromorphone [From DILAUDID] Allergy Severe anaphalaxis Verified 02/02/18 13:41 hydrocodone [From VICODIN] AdvReac Intermediate vomiting Verified 02/02/18 13:41 Review of Systems Constitutional Constitutional: Reports system reviewed and no additional complaints, except as documented Cardiovascular Cardiovascular: Reports system reviewed; no additional complaints, except as documented Respiratory Respiratory: Reports system reviewed and no additional complaints, except as documented Gastrointestinal Gastrointestinal: Reports system reviewed and no additional complaints, except as documented Genitourinary Genitourinary: Reports system reviewed and no additional complaints, except as documented Musculoskeletal Musculoskeletal: Reports system reviewed; no additional complaints, except as documented Hematologic/Lymphatic Hematologic/Lymphatic: Reports system reviewed and no additional complaints, except as documented Exam Vital Signs (past 8 hours): 134/92, 108, 36.2C Const General: cooperative, healthy appearing and comfortable Resp Effort & Inspection: normal respiratory effort Auscultation: clear to auscultation bilaterally Cardio Rate: regular rate Rhythm: regular rhythm GI Palpation: soft and No tender Skin General: no rashes or lesions noted Objective Labs Labs: AB+, Antibody neg, RPR neg, HBsAg neg, HIV neg, rubella immune, varicella immune Assessment and Plan Assessment and Plan Assessment and Plan narrative: This patient is a 33yo @39+1 admitted for repeat section and bilateral tubal ligation. The patient vocalized understanding that a tubal ligation is considered permanent sterilization, and of risks and benefits of repeat section. We discussed using additional uterotonics given her history of hemorrhage, and the patient vocalized understanding. - cEFM, toco - CBC, type and cross to be drawn - for pitocin protocol, 30u in 500ccs - for methergine series
--- NOTE | 2019-03-27 12:04 | PM.PREOP ---
Pre-operative Note Interval Note History & Physical reviewed/Exam performed by Physician: Yes Changes to H&P: No
[2019-03-27 13:24] LABS: Add Manual Diff / Slide Review NO; Basophils Absolute Auto 0 /uL (0-100); Basophils Percent Auto 0.4 % (0-2); Eosinophils Absolute Auto 100 /uL (0-450); Eosinophils Percent Auto 1.1 % (2-4); Hematocrit 38.3 % (36-46); Hemoglobin 12.9 g/dL (12.0-16.0); Lymphocytes Absolute Auto 1700 /uL (1100-4500); Lymphocytes Percent Auto 14.9 % (25-40); Mean Corpuscular HGB Conc 33.8 % (30-36); Mean Corpuscular Hemoglobin 31.4 PG (26-34); Monocytes Absolute Auto 700 /uL (0-900); Monocytes Percent Auto 6.6 % (3-14); Neutrophils Absolute Auto 8700 /uL (1500-7000); Platelet Count 303 X10^3/uL (150-400); Red Blood Cell Count 4.12 X10^6/uL (4.0-5.2); Red Cell Distribution Width 13.2 % (11.6-14.8); White Blood Cell Count 11.3 X10^3/uL (4.5-11.0)
[2019-03-27] MEDS: CEFAZOLIN 2 GM/100 ML FROZ.PIGGY IV (14:15)
--- NOTE | 2019-03-27 14:32 | SUR.OPER ---
Supine on Padded OR bed, head on pillow, safety belt at thigh, arms secured on padded arm boards at <90 degrees abduction. Bump under right buttock. Legs uncrossed with pillow under knees, gel pad to heels, tape over blanket to lower legs.
--- NOTE | 2019-03-27 14:38 | SUR.OPER ---
FHT's 138 TOB at 14:37 alive girl Cord blood x 2 given to OB nurse and placenta
[2019-03-27] MEDS: LACTATED RINGERS 1,000 ML 100 ML IV (15:04)
[2019-03-27] MEDS: OXYTOCIN PREMIX 30 UNIT/500 ML PLAST..BAG 166 UNIT IV (16:10)
--- NOTE | 2019-03-27 16:11 | SUR.PHASEI ---
Pitocin drip started on IV pump, 500 ml/30 units to run over three hours per Dr. Bruno. Talked to Vic in pharmacy re: order; stated that it is to be titrated per Dr. torres
--- NOTE | 2019-03-27 16:16 | PM.OP.1 ---
Operative Date/Time/Diagnoses Date of procedure: 03/27/19 Time of procedure: 14:30 Pre-op diagnosis: history of prior section Post-op diagnosis: same Procedure & Clinicians Procedure: Repeat section and bilateral tubal ligation Same procedure as scheduled: Yes Indications: history of section Surgeon: Kalyani Cheng Rotor Coil Taper: Catalina Toscano Anesthesia Type: Spinal Operative Notes Findings: Normal ovaries, normal tubes, minimal scar tissue. Uterine texture consistent with adenomyosis. Closure Type: primary Specimen(s): other (portion of right and left fallopian tube) Applied: catheter Estimated Blood Loss (mL): 750 Blood products transfused: none Procedure in detail: EBL: 750 Fluids:1800ccr LR, 10u pitocin UOP: 300ccs Findings: Female infant in cephalic presentation, Apgars [ ], weight [ ] Procedures: The patient was taken to the operating room where spinal anesthesia was placed and found to be adequate. She was prepped and draped in the normal sterile fashion in the dorsal supine position with a leftward tilt. A Pfannenstiel skin incision was made with a scalpel through the prior incision scar, and carried through to the underlying layer of fascia. The fascia was incised in the midline and the incision extended laterally with Ndiaye scissors. The inferior aspect of this incision was grasped with Vannesa clamps, elevated. and the underlying rectus muscles dissected off with curved ndiaye scissors. Attention was then turned to the superior aspect of this incision which, in a similar fashion, was grasped, tented up with the Vannesa clamps, and the rectus muscles dissected off with curved ndiaye scissors. The rectus muscles were then in the midline, and the peritoneum identified, tented up, and entered sharply with Metzenbaum scissors. The peritoneal incision was extended superiorly and inferiorly with good visualization of the bladder. The bladder blade was inserted and the vesicao- uterine peritoneum identified, grasped with pickups, and entered sharply with the Metzenbaum scissors. This incision was extended laterally, and the bladder flap created digitally. The bladder blade was then reinserted and the lower uterine segment incised in transverse fashion with the scalpel. The uterine incision was bluntly extended laterally. The bladder blade was removed, and the infant's head delivered atraumatically. After 45 seconds of delayed cord clamping, the cord was clamped and cut. The nose and mouth were suctioned as needed with a bulb syringe, and the was handed off to awaiting pediatricians. The placenta was then removed manually, and the uterus was exteriorized and cleared of all clots and debris. The uterine incision was repaired with 1-0 chromic in a running, locked fashion a 2nd layer of the same suture was used to obtain excellent hemostasis. Attention was then turned to the fallopian tubes, which were identified by following it out to its fimbriated end. The left fallopian tube was grasped at the isthmus with a Snyder clamp, a length of plain gut was used to tie off an approximately 1.5 cm knuckle of fallopian tube, and a 2nd tie of plain gut was used to place a 2nd tie beneath the 1st. The Metzenbaum scissors were used to remove the portion of fallopian tube above the level of the 1st plain gut tie, that Endo salpinx was trimmed, and the Endo salpinx cauterized with the Bovie. Hemostasis was assured, and the same procedure was performed on the right without complication. The uterus was returned to the abdomen , and the gutters were cleared of all clots and debris. The bladder flap was repaired with 2 0 Vicryl in a running fashion. The peritoneum was closed with 3-0 Vicryl, and the fascia reapproximated with 0 Vicryl in a running fashion. The subcutaneous layer was placed with 3 0 Vicryl in an interrupted fashion and the skin was closed with 4-0 biosyn in a running fashion. The patient tolerated the procedure well sponge lap and needle counts were correct x2. 2 g of Ancef were given at commencement of the case. The patient was taken to the recovery room in stable condition. Complications: none Post-operative Condition: stable Disposition: PACU
--- NOTE | 2019-03-27 16:34 | SUR.PHASEI ---
slight nausea, declined Rx, Quease-ease given. States that it is unchanged but knows that there is medication available if she wants it. Report called to Center. Small almost quarter sized spot of red drainage on incision dressing.
--- NOTE | 2019-03-27 16:53 | SUR.PHASEI ---
1640 to [facility], passed Dr. Cheng in [place], she will come and check on pt in [facility]. Large amount of vag bleeding upon arrival, pad and chux changed by [facility] RN; Dr. Cheng present, talking with patient and spouse about bleeding. SCDs placed on by RN. Dr. Cheng assessed uterus, states that it feels at the same level as marked, fundus firm. Small clot expressed by BC RN, none were expressed in the PACU.
--- NOTE | 2019-03-27 16:56 | SUR.PHASEI ---
120 ml of LR/pitocin infused in PACU, placed on BC pump.
[2019-03-27] MEDS: OXYCODONE IR 5 MG TABLET PO ×2 (17:26→21:47)
[2019-03-27] MEDS: LANOLIN OINT 7 GM 1 APPLIC TOP (17:27)
[2019-03-27] MEDS: NALBUPHINE 20 MG/ML AMPUL 5 MG IV ×2 (17:35→23:35)
[2019-03-27] MEDS: IBUPROFEN 600 MG TABLET PO ×2 (18:18→23:36)
[2019-03-27] MEDS: OXYCODONE/ACETAMINOPHEN 5/325 TABLET 1 TAB PO ×2 (18:28→23:34)
[2019-03-27] MEDS: METHYLERGONOVINE 0.2 MG TABLET PO ×2 (19:15→23:34)
[2019-03-27] MEDS: DOCUSATE 250 MG CAPSULE PO (21:48)
[2019-03-28] MEDS: OXYCODONE IR 5 MG TABLET PO ×5 (01:59→20:16)
[2019-03-28] MEDS: OXYCODONE/ACETAMINOPHEN 5/325 TABLET 1 TAB PO ×5 (03:50→22:23)
[2019-03-28] MEDS: METHYLERGONOVINE 0.2 MG TABLET PO ×2 (03:50→09:21)
[2019-03-28] MEDS: IBUPROFEN 600 MG TABLET PO ×3 (06:07→18:20)
[2019-03-28 07:15] LABS: Hematocrit 33.3 % (36-46); Hemoglobin 11.3 g/dL (12.0-16.0)
--- NOTE | 2019-03-28 08:34 | P.PNOB_ITS ---
Subjective - OB Subjective Patient comments: no complaints and pain well controlled [place] baby status: doing well and nursing well feeding status: exclusively breast feeding Narrative: This patient is a 33yo POD#1 s/p uncomplicated repeat CS and bilateral tubal ligation, recovering well and meeting postoperative milestones. Date Patient Seen: 03/28/19 Time Patient Seen: 08:00 Interval history: The patient is recovering well, ambulating, voiding, tolerating PO, and with good pain control. The patient has minimal lochia and a firm fundus. Exam Vital Signs (past 8 hours): 117/71, HR 91, 98.6F Oxygen Delivery Method Room Air Const General: cooperative, healthy appearing and anxious Orientation: alert, awake and oriented x3 Resp Effort & Inspection: normal respiratory effort Auscultation: clear to auscultation bilaterally Cardio Rate: regular rate Rhythm: regular rhythm GI Inspection: distended (tympanic) Palpation: soft and No tender Skin General: no rashes or lesions noted Objective Labs Result Diagrams: 03/28/19 06:28 Labs: Laboratory Results - last 24 hr 03/27/19 03/27/19 03/28/19 13:14 13:14 06:28 WBC 11.3 H RBC 4.12 Hgb 12.9 11.3 L Hct 38.3 33.3 L MCV 93.0 MCH 31.4 MCHC 33.8 RDW 13.2 Plt Count 303 Neut % (Auto) 77.0 H Lymph % (Auto) 14.9 L Hardin % (Auto) 6.6 Eos % (Auto) 1.1 L Baso % (Auto) 0.4 Neut # (Auto) 8700 H Lymph # (Auto) 1700 Hardin # (Auto) 700 Eos # (Auto) 100 Baso # (Auto) 0 Blood Type AB Positive Antibody Screen Negative Assessment & Plan Plan day: 1 plan OB: routine care Comments: This patient is PPD#1 s/p uncomplicated rCS and BLTL, but has a history of delayed PPH and had intraoperative findings c/w adenomyosis. She received a total of 40u pitocin postoperatively over 3 hours, and will complete a methergine series midday today. We will continue to monitor her in house until tomorrow AM. - Ambulation encouraged - Regular diet - Pain meds PRN - Methergine series per protocol Time Spent With Patient Time: Total time spent is greater than 50% in coordination of care (as documented) at patient's floor/unit and/or counseling patient: Time with patient: less than 15 minutes
[2019-03-28] MEDS: DOCUSATE 250 MG CAPSULE PO (09:23)
[2019-03-28] MEDS: FLUCONAZOLE 150 MG TABLET PO (15:20)
[2019-03-29] MEDS: OXYCODONE IR 5 MG TABLET PO ×2 (00:18→04:13)
[2019-03-29] MEDS: IBUPROFEN 600 MG TABLET PO ×3 (00:18→12:07)
[2019-03-29] MEDS: OXYCODONE/ACETAMINOPHEN 5/325 TABLET 1 TAB PO ×3 (02:16→10:53)
--- NOTE | 2019-03-29 08:53 | P.PNOB_ITS ---
Subjective - OB Subjective Patient comments: no complaints [place] baby status: doing well feeding status: exclusively breast feeding Narrative: Patient recovering well on postop day 2, minimal bleeding, ambulating, voiding, tolerating p.o., good pain control. Patient reports no other symptoms or complaints. Date Patient Seen: 03/29/19 Time Patient Seen: 08:45 Exam Vital Signs (past 8 hours): 122/82, hr 87, 98.4 F Oxygen Delivery Method Room Air Const General: cooperative, healthy appearing and comfortable Resp Effort & Inspection: normal respiratory effort Auscultation: clear to auscultation bilaterally GI Other: Incision clean/dry/intact, covered with Aquacel dressing. Uterus firm, well below U. tympanic distention improved since yesterday, abdomen soft and nontender. Objective Labs Result Diagrams: 03/28/19 06:28 Assessment & Plan Plan day: 2 plan OB: routine care, routine postop care and discharge home Comments: This patient is status post a Methergine series due to her history of hemorrhage, minimal bleeding yesterday and today, fundus firm, stable for discharge with precautions. Precautions for return and activity restrictions discussed. Patient to see Dr. Chacon in clinic in 1 week. Time Spent With Patient Time: Total time spent is greater than 50% in coordination of care (as documented) at patient's floor/unit and/or counseling patient: Time with patient: 15-24 minutes
--- NOTE | 2019-03-29 08:53 | PM.DS.1 ---
History of Present Illness History of Present Illness Chief complaint: [id number] REPEAT W/CARMEN TUBAL LIGATION Narrative: This patient is a 33-year-old G2 now P2 status post repeat section and bilateral tubal ligation. Patient had a history of hemorrhage 5 days after 1st delivery, was placed on a Methergine series here to good effect. Recovery was uncomplicated, patient was discharged on postop day 2 with precautions. Discharge Providers Provider Date of admission: 03/27/19: Discharge Date: 03/29/19 Primary care physician: Catalina Toscano DO Consults: 03/27/19 17:13 Consult to Center Medical And Lab Director Routine Comment: Discharge provider: Kalyani Cheng MD Summary Status at Discharge Cognitive/behavioral status at discharge: oriented Time Spent with Patient Time spent: Less than 30 minutes Exam Vital Signs (past 8 hours): CC day of discharge note Oxygen Delivery Method Room Air Objective Labs Result Diagrams: 03/28/19 06:28 Discharge Plan Discharge Plan Patient Disposition: Home Discharge orders & Medications Prescriptions: New oxycodone 5 mg Tablet 5 mg PO Q4HR PRN (Reason: Pain, Moderate (4-6)) Qty: 10 RF: 0 docusate sodium [Dulcolax Stool Softener (dss)] 100 mg capsule 100 mg PO BID Qty: 30 RF: 2 Continued 1 tab PO DAILY RF: 0 Follow up/Referrals: Lynne Chacon MD [Physician] - 1 Week (please follow up w/ Dr. Chacon on Apr 03 @ 12:15pm Clinic at [facility]: @ 11am) Catalina Toscano DO [Primary Care Provider] - Diet/Activity/Treatments Diet: Regular Activity: Nothing in the vagina for 6 weeks. Avoid heavy lifting for 6 weeks. Skin/Wound/Dressing Care Report to your healthcare provider any signs of infection, such as:: chills, fever, night sweats, increased pain, unusual drainage and unusual redness Visit Report/Discharge Packet Instructions: DI for Stand Alone Forms: Discharge: Care Discharge Data Primary Care Provider: Catalina Toscano Discharges patient from system. Discharge Date/Time: 03/29/19 14:10
[2019-03-29] MEDS: DOCUSATE 250 MG CAPSULE PO (10:05)
== END 2019-03-29 14:10 | disposition home or self-care (01) | DRG 785 ==
PROVIDERS: Specialist; Admitting Provider Obstetrics & Gynecology; PCP Family Medicine; Visit Provider Obstetrics & Gynecology
PROC: (CPT 59514; principal; 2019-03-27 13:30)
DX: O34.211 Maternal care for low transverse scar from previous cesarean delivery (principal); Z3A.39 39 weeks gestation of pregnancy; Z37.0 Single live birth; Z30.2 Encounter for sterilization
CPT/HCPCS: 36415; 58611; 59050; 59400; 59409; 59510; 59514; 85014; 85018; 85025; 86850; 86900; 86901; J0690; J2274; J2300; J2590

== ENCOUNTER → 2019-04-12 10:13 | Outpatient (CLI) | payer BC, SELFPAY ==
--- NOTE | 2019-04-12 10:14 | DI.US.S_ITS ---
ULTRASOUND OF RIGHT BREAST AND AXILLA: 04/12/2019 CLINICAL: Palpable right axilla lump. No prior exams were available for comparison. Real-time ultrasound of the right breast axilla was performed. Bowens scale images of the real-time examination were reviewed. No significant abnormalities were seen sonographically in the right axilla. IMPRESSION: NEGATIVE There is no sonographic evidence of malignancy. There is no abnormality seen in the right axilla to correspond with the area of clinical concern and palpable abnormality in the right axilla, however, clinical followup is recommended for persistent or worsening symptoms. This exam was interpreted at Station ID: [id number]. Electronically Signed By: Vinicio Seymour M.D. aty/:04/12/2019 10:36:26 Ultrasound BI-RADS: 1 Negative
== END ==
PROVIDERS: PCP Family Medicine; Visit Provider Specialist
DX: N63.31 Unspecified lump in axillary tail of the right breast (principal); Z39.1 Encounter for care and examination of lactating mother
CPT/HCPCS: 76882